=== PATIENT | female | born 1940 ===

== ENCOUNTER 2019-08-06 10:51 | Outpatient (CLI) | payer OTHER ==
[~2019-08-06 10:51] MED LIST: CALAN80 MG; GABAPENTIN300 MG; METFORMIN HCL500 MG; QUINAPRIL HCL20 MG; ZANTAC300 MG; ZOCOR20 MG
== END 2019-08-06 11:02 | disposition home or self-care (01) ==
LOC: SONOGRAMA 10:51
DX: C50.212 Malignant neoplasm of upper-inner quadrant of left female breast (principal); N60.11 Diffuse cystic mastopathy of right breast; N60.12 Diffuse cystic mastopathy of left breast; R92.0 Mammographic microcalcification found on diagnostic imaging of breast

== ENCOUNTER → 2019-10-26 13:58 | Outpatient (CLI) | payer OTHER ==
[~2019-10-26 13:58] MED LIST changes: +JANUVIA25 MG PO; +PENTOXIFYLLINE400 MG PO; +PEPCID AC20 MG PO; +PROAIR HFA8.5 GM IH; +SINGULAIR10 MG PO; +VERELAN PM300 MG PO
== END | disposition home or self-care (01) ==
LOC: LAB 08:20
DX: I10 Essential (primary) hypertension (principal); D64.89 Other specified anemias; D68.8 Other specified coagulation defects; N39.0 Urinary tract infection, site not specified; E11.00 Type 2 diabetes mellitus with hyperosmolarity without nonketotic hyperglycemic-hyperosmolar coma (NKHHC); E04.1 Nontoxic single thyroid nodule; E78.2 Mixed hyperlipidemia

== ENCOUNTER 2019-10-29 06:00 | Day surgery (SDC) | payer OTHER ==
[~2019-10-29] VITALS: Ht 149.9 cm; Wt 68.9 kg
== END 2019-10-30 08:00 | disposition home or self-care (01) ==
LOC: CIR.AMB 06:00 → SURH 06:30 → O/R 06:30 → SURH 15:30 → CIR.AMB 10-30 08:00 → O/R 10-30 15:21 → SURH 10-30 15:21 → ADM 11-26 08:00 → EDSTATUS 11-26 08:00 → SURH 11-26 08:00
DX: C50.412 Malignant neoplasm of upper-outer quadrant of left female breast (principal)